=== PATIENT | male | born 1945 | race Caucasian/White ===

== ENCOUNTER 2017-10-28 16:07 | Outpatient (CLI) | payer MEDICARE | END 2017-10-28 16:08 | disposition critical access hospital (66) | LOC: EMS 16:07 | PROVIDERS: ATTEND Surgery | DX: S09.93XA Unspecified injury of face, initial encounter (principal); M79.622 Pain in left upper arm; W10.8XXA Fall (on) (from) other stairs and steps, initial encounter; Y92.59 Other trade areas as the place of occurrence of the external cause | CPT/HCPCS: A0425; A0427 ==

== ENCOUNTER 2017-10-28 16:28 | Emergency (ER) | payer MEDICARE ==
--- NOTE | 2017-10-28 17:30 | ED Physician Documentation ---
PD HPI Fall - Stated complaint Stated Complaint: FALL - Chief complaint Chief Complaint: Trauma Hd/Nk - History obtained from History obtained from: Patient, Family, EMS - History of Present Illness Mechanism of injury: Slipped, Lost balance Fall distance: Standing position (fell down 2 steps and struck face/left arm. Denies injury to chest and abd.) Timing - onset: Today Injury(ies) location: Face, Left Uppper Extremity. No: Head, Neck, Chest, Abdomen Quality of pain: Pain Associated symptoms: No: LOC, AMS, Nausea / vomiting Worsens with: Movement, Palpation Contributing factors: No: Anticoagulated, Intoxicated Similar symptoms before: Has not had sx before Recently seen: Not recently seen Review of Systems Constitutional: denies: Fever Nose: reports: Epistaxis (from the injury). denies: Rhinorrhea / runny nose, Congestion Throat: denies: Sore throat Cardiac: denies: Chest pain / pressure, Palpitations Respiratory: denies: Dyspnea, Cough GI: denies: Abdominal Pain, Nausea, Vomiting Skin: reports: Abrasion (s) (nose). denies: Laceration (s) Musculoskeletal: reports: Extremity pain (left shoulder). denies: Neck pain, Back pain Neurologic: denies: Focal weakness, Numbness, Confused, Altered mental status, Headache (just facial nose pain) PD PAST MEDICAL HISTORY - Past Medical History Cardiovascular: Hypertension Respiratory: None Neuro: None Endocrine/Autoimmune: Type 2 diabetes : Benign prostate hypertrophy - Present Medications Home Medications: Ambulatory Orders Medication Instructions Recorded Confirmed Carbamazepine [Carbamazepine ER] 10/28/17 Glipizide [Glipizide ER] 5 mg PO 10/28/17 HYDROcod/ACETAM 5/325 [[place] 5/325] 1 tab PO Q6H PRN #25 tablet 10/28/17 Lisinopril 40 mg PO 10/28/17 Tamsulosin [Flomax] 0.4 mg PO DAILY 10/28/17 10/28/17 metFORMIN [Glucophage] 500 mg PO ONCE 10/28/17 10/28/17 - Allergies Allergies/Adverse Reactions: Allergies Allergy/AdvReac Type Severity Reaction Status Date / Time No Known Drug Allergies Allergy Verified 10/28/17 16:48 - Living Situation Living Situation: reports: With spouse/s.o. Living Arrangement: reports: At home PD ED PE NORMAL - Vitals Vital signs reviewed: Yes - General General: Alert and oriented X 3, Well developed/nourished, Other (swelling and abrasion of nose. Dried blood in nostrils. No septal hematoma. ) - HEENT HEENT: PERRL, EOMI, Pharynx benign, Other (abrasion of gums from denture plate) - Neck Neck: Supple, no meningeal sign, No bony TTP, No adenopathy - Cardiac Cardiac: RRR, No murmur - Respiratory Respiratory: Clear bilaterally - Abdomen Abdomen: Soft, Non tender - Back Back: No CVA TTP, No spinal TTP - Derm Derm: Normal color, Warm and dry - Extremities Extremities: Normal ROM s pain, No calf tenderness / cord, Other (left proximal humerus with pain on any ROM. Good pulses and cap refill distally. 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 ) - Neuro Neuro: Alert and oriented X 3, investigator 2-12 intact, No motor deficit, No sensory deficit, Normal speech Eye Opening: Spontaneous Motor: Obeys Commands Verbal: Oriented GCS Score: 15 Results - Vitals Vitals: Vital Signs - 24 hr 10/28/17 10/28/17 16:42 20:25 Temperature 35.9 C L Heart Rate 97 90 Respiratory 15 16 Rate Blood Pressure 173/94 H 168/88 H O2 Saturation 95 96 Oxygen O2 Source Room air - Rads (name of study) facial head CT Radiology: Prelim report reviewed (nasal fracture) left humerus Radiology: Prelim report reviewed (impacted humeral neck fracture. ) PD MEDICAL DECISION MAKING - ED course Complexity details: reviewed results, considered differential, d/w patient - Sepsis Event Vital Signs: Vital Signs - 24 hr 10/28/17 10/28/17 16:42 20:25 Temperature 35.9 C L Heart Rate 97 90 Respiratory 15 16 Rate Blood Pressure 173/94 H 168/88 H O2 Saturation 95 96 Oxygen O2 Source Room air Departure - Departure Disposition: 01 Home, Self Care Clinical Impression: Fall from slip, trip, or stumble Qualifiers: Encounter type: initial encounter Qualified Code(s): W01.0XXA - Fall on same level from slipping, tripping and stumbling without subsequent striking against object, initial encounter Nasal bone fracture Qualifiers: Encounter type: initial encounter Fracture type: closed Qualified Code(s): S02.2XXA - Fracture of nasal bones, initial encounter for closed fracture Fracture of neck of humerus Qualifiers: Encounter type: initial encounter Fracture type: closed Laterality: left Qualified Code(s): S42.212A - Unspecified displaced fracture of surgical neck of left humerus, initial encounter for closed fracture Condition: Stable Record reviewed to determine appropriate education?: Yes Instructions: ED Fx Nasal Conf W X Ray, ED Fx Shoulder Follow-Up: Courtney Ellison PA [Primary Care Provider] - Joel Valdes MD [Provider Admit Priv/Credential] - Prescriptions: HYDROcod/ACETAM 5/325 [[place] 5/325] 1 tab PO Q6H PRN #25 tablet PRN Reason: Pain Comments: Shoulder immobilizer to reduce motion at the shoulder for 4-6 weeks. Follow-up with orthopedics in about a week to evaluate the healing. Call tomorrow for an appointment. Ibuprofen if needed for pains. Add Tylenol or hydrocodone if needed for worse pain. You did break your nose as well and we would see how it looks when the swelling goes down and how well you breathe through it. It is okay to use some saline nose spray or such to clean the nostrils. Gentle nose blowing is okay. Discharge Date/Time: 10/28/17 20:25
[2017-10-28] MEDS ORDERED: HYDROmorphone 1 MG/ML CARPUJECT IVP STA (17:47)
[2017-10-28] MEDS ORDERED: KETOROLAC 15 MG/ML VIAL IVP STA (17:48)
--- NOTE | 2017-10-28 19:07 | CT Report ---
Procedure Date: 10/28/2017 Accession Number: [id number] / [id number] Procedure: CT - Head W/O CPT Code: FULL RESULT: EXAM: CT HEAD WITHOUT CONTRAST. EXAM DATE: 10/28/2017 06:35 PM. CLINICAL HISTORY: Fell down 2 steps, struck face/head. COMPARISON: None. TECHNIQUE: Multiaxial CT images were obtained from the foramen magnum to the vertex. Reformats: Coronal. IV contrast: None. In accordance with CT protocol optimization, one or more of the following dose reduction techniques were utilized for this exam: automated exposure control, adjustment of mA and/or KV based on patient size, or use of iterative reconstructive technique. FINDINGS: Parenchyma: No intraparenchymal hemorrhage. No evidence of mass, midline shift, or CT findings of infarction. Moser-white differentiation is distinct. Moderate diffuse chronic microangiopathic white matter changes noted. Extraaxial Spaces: Normal for age. No subdural or epidural collections identified. Ventricles: Normal in size and position. Sinuses and Orbits: Moderate mucous retention cyst versus polyp in the left maxillary sinus. Opacification of multiple anterior ethmoid air cells, likely due to facial trauma. Rightward bowing of the mid nasal septum. Imaged orbits and mastoid air cells are unremarkable. Bones: Comminuted mildly displaced left nasal bone fracture with comminuted minimally displaced right nasal bone fracture. No additional facial fracture demonstrated. Calvarium is intact. No suspicious focal osseous lesion. Other: None. IMPRESSION: 1. No acute intracranial abnormality. Specifically, no intracranial hemorrhage. 2. Comminuted mildly displaced left and minimally displaced right nasal bone fractures. RADIA
--- NOTE | 2017-10-28 19:19 | XRAY Report ---
Procedure Date: 10/28/2017 Accession Number: [id number] / [id number] Procedure: XR - Humerus LT CPT Code: FULL RESULT: EXAM: LEFT HUMERUS RADIOGRAPHY EXAM DATE: 10/28/2017 06:48 PM. CLINICAL HISTORY: Fall down steps onto left arm. Pain. COMPARISON: None. TECHNIQUE: 2 views. FINDINGS: Bones: Impacted humeral neck fracture and mildly displaced greater tuberosity fracture. No other bony abnormalities. Joints: Normal. No effusions or subluxations in the visualized shoulder or elbow joints. Soft Tissues: Unremarkable. IMPRESSION: Impacted humeral neck fracture and mildly displaced greater tuberosity fracture. RADIA
[2017-10-28] MEDS ORDERED: MORPHINE 10 MG/ML VIAL IVP STA (19:45)
[2017-10-28] MEDS: HYDROcod/ACETAM 5/325 MG TABLET PO STA ×2 (19:54→19:58)
[2017-10-28] MEDS ORDERED: HYDROcod/ACET 5/325 Prepack 4 PO STA (20:01)
[2017-10-28 20:26] VITALS: BP 168/88
== END 2017-10-28 20:25 | disposition home or self-care (01) ==
LOC: EDUNIT# → ED 16:28
DX: S02.2XXA Fracture of nasal bones, initial encounter for closed fracture (principal); S42.212A Unspecified displaced fracture of surgical neck of left humerus, initial encounter for closed fracture; W10.9XXA Fall (on) (from) unspecified stairs and steps, initial encounter; E11.9 Type 2 diabetes mellitus without complications; I10 Essential (primary) hypertension; Z79.84 Long term (current) use of oral hypoglycemic drugs
CPT/HCPCS: 70450; 73060; 96374; 96375; 99283; 99284; A9270; J1170

== ENCOUNTER 2017-12-03 07:53 | Outpatient (CLI) | payer MEDICARE | END 2017-12-03 07:54 | disposition critical access hospital (66) | LOC: EMS 07:53 | PROVIDERS: ATTEND Surgery | DX: R41.82 Altered mental status, unspecified (principal); R73.09 Other abnormal glucose | CPT/HCPCS: A0425; A0427 ==

== ENCOUNTER 2017-12-03 08:03 | Emergency (ER) | payer MEDICARE ==
[2017-12-03] MEDS ORDERED: SODIUM CHLORIDE 0.9% 1,000 ML IV ONE (08:13)
--- NOTE | 2017-12-03 08:25 | ED Physician Documentation ---
History of Present Illness - Stated complaint Stated Complaint: ALOC - Chief complaint Chief Complaint: Neuro - Additonal information Additional information: hx from EMS and pt and EMR 72 male pmhx HTN T2DM and "GI issues" per EMS who got hx from he has had a poor appetite for a week and has not been eating, and confusion since yesterday found him down on the floor at top of stairs - per EMS appears to have taken one step down and fallen backward onto carepted landing per EMS per no fever cough NVD has had urinary sx Review of Systems Constitutional: denies: Fever Cardiac: denies: Chest pain / pressure Respiratory: denies: Dyspnea GI: reports: Bloody / black stool (black BM on leg). denies: Abdominal Pain, Nausea, Vomiting, Diarrhea : reports: Dysuria Musculoskeletal: denies: Neck pain Neurologic: reports: Confused, Altered mental status. denies: Headache Endocrine: denies: Easy bruising / bleeding Immunocompromised: denies: Immunocompromised PD PAST MEDICAL HISTORY - Past Medical History Cardiovascular: Hypertension Respiratory: None Neuro: None Endocrine/Autoimmune: Type 2 diabetes : Benign prostate hypertrophy Psych: Post traumatic stress disorder - Past Surgical History Past Surgical History: No - Present Medications Home Medications: Ambulatory Orders Medication Instructions Recorded Confirmed Carbamazepine [Carbamazepine ER] 10/28/17 Glipizide [Glipizide ER] 5 mg PO 10/28/17 HYDROcod/ACETAM 5/325 [[place] 5/325] 1 tab PO Q6H PRN #25 tablet 10/28/17 Lisinopril 40 mg PO 10/28/17 Tamsulosin [Flomax] 0.4 mg PO DAILY 10/28/17 10/28/17 metFORMIN [Glucophage] 500 mg PO ONCE 10/28/17 10/28/17 - Allergies Allergies/Adverse Reactions: Allergies Allergy/AdvReac Type Severity Reaction Status Date / Time No Known Drug Allergies Allergy Verified 10/28/17 16:48 - Social History Does the pt smoke?: No Smoking Status: Never smoker Does the pt drink ETOH?: Yes Does the pt have substance abuse?: No - Immunizations Immunizations are current?: No Immunizations: TDAP >10years/unknown PD ED PE NORMAL - Vitals Vital signs reviewed: Yes (tachy) - General General: No: Alert and oriented X 3 (confused slow to respond oriented X 2) - HEENT HEENT: PERRL. No: EOMI (dysconjugate gaze) - Neck Neck: No bony TTP (will image 2/2 fall and AMS) - Cardiac Cardiac: RRR (tachy) - Respiratory Respiratory: Clear bilaterally - Abdomen Abdomen: Soft, Other (large erythematous warm indurated swelling to L inguinal region with central necrosis) - Male Male : Other (tetes desc scrotal erythema s necrosis or crepitus) - Rectal Rectal: Other (black stool trace occult blood + QC passed) - Derm Derm: No: Normal color (see abd exam) - Neuro Neuro: Other (answers simple questions, moves all ext). No: Alert and oriented X 3 (X 2) Results - Vitals Vitals: Vital Signs - 24 hr 12/03/17 12/03/17 12/03/17 08:05 08:35 08:53 Temperature 36.0 C L 36 C L Heart Rate 114 H 117 H 124 H Respiratory 18 18 20 Rate Blood Pressure 124/72 130/77 130/70 O2 Saturation 95 99 97 12/03/17 12/03/17 12/03/17 09:30 10:41 11:15 Temperature Heart Rate 117 H 117 H 117 H Respiratory 16 16 18 Rate Blood Pressure 124/67 122/71 141/72 H O2 Saturation 100 100 98 12/03/17 12/03/17 12/03/17 11:30 11:45 12:08 Temperature Heart Rate 115 H 115 H 115 H Respiratory 18 17 18 Rate Blood Pressure 120/103 H 134/71 H 132/82 H O2 Saturation 99 99 98 12/03/17 12/03/17 12/03/17 12:30 14:01 14:54 Temperature 35.9 C L Heart Rate 113 H 110 H 110 H Respiratory 17 17 18 Rate Blood Pressure 126/64 110/65 149/66 H O2 Saturation 98 100 99 12/03/17 12/03/17 12/03/17 15:51 16:00 16:34 Temperature Heart Rate 109 H 110 H 109 H Respiratory 20 19 18 Rate Blood Pressure 115/71 108/60 113/65 O2 Saturation 100 98 100 Oxygen O2 Source Room air Oxygen Flow Rate 2 - EKG (time done) 0828 Rate: Rate (enter#) (113) Rhythm: Other (sinus vs regular ectopic tachycardia) Intervals: RBBB Ischemia: ST elevation c/w ischemia (inferior), Q waves (inferior) - Labs Labs: Laboratory Tests 12/03/17 12/03/17 12/03/17 08:19 08:19 08:19 WBC RBC Hgb Hct MCV MCH MCHC RDW Plt Count MPV Neut # (Auto) Lymph # (Auto) [place] # (Auto) Eos # (Auto) Baso # (Auto) Absolute Nucleated RBC Total Counted Band Neuts % (Manual) Reactive Lymphs % (Man) Abnorm Lymph % (Manual) Nucleated RBC % Neutrophils # (Manual) Lymphocytes # (Manual) Monocytes # (Manual) Eosinophils # (Manual) Basophils # (Manual) Differential Comment Manual Slide Review RBC Morph Micro Appear PT 13.4 H INR 1.2 APTT 20.5 L VBG pH VBG pCO2 VBG pO2 VBG HCO3 VBG Total CO2 VBG O2 Saturation VBG Base Excess Sodium 130 L Potassium 4.9 Chloride 92 L Carbon Dioxide 13 L Anion Gap 25.0 H BUN 39 H Creatinine 1.5 H Estimated GFR (MDRD) 46 L Glucose 695 H* Lactic Acid Calcium 9.3 Total Bilirubin 2.0 H AST 14 ALT 25 Alkaline Phosphatase 52 Total Creatine Kinase 39 Troponin I < 0.04 Total Protein 6.6 L Albumin 2.4 L Globulin 4.2 Albumin/Globulin Ratio 0.6 L Lipase 38 Urine Color Urine Clarity Urine pH Ur Specific [place] Urine Protein Urine Glucose (UA) Urine Ketones Urine Occult Blood Urine Nitrite Urine Bilirubin Urine Urobilinogen Ur Leukocyte Esterase Ur Microscopic Review Urine Culture Comments Blood Type Blood Type Recheck Antibody Screen 12/03/17 12/03/17 12/03/17 08:19 08:19 08:36 WBC RBC Hgb Hct MCV MCH MCHC RDW Plt Count MPV Neut # (Auto) Lymph # (Auto) [place] # (Auto) Eos # (Auto) Baso # (Auto) Absolute Nucleated RBC Total Counted Band Neuts % (Manual) Reactive Lymphs % (Man) Abnorm Lymph % (Manual) Nucleated RBC % Neutrophils # (Manual) Lymphocytes # (Manual) Monocytes # (Manual) Eosinophils # (Manual) Basophils # (Manual) Differential Comment Manual Slide Review RBC Morph Micro Appear PT INR APTT VBG pH 7.174 L VBG pCO2 35.5 L VBG pO2 30.6 VBG HCO3 12.8 L VBG Total CO2 13.9 L VBG O2 Saturation 50.1 L VBG Base Excess -14.7 L Sodium Potassium Chloride Carbon Dioxide Anion Gap BUN Creatinine Estimated GFR (MDRD) Glucose Lactic Acid Calcium Total Bilirubin AST ALT Alkaline Phosphatase Total Creatine Kinase Troponin I Total Protein Albumin Globulin Albumin/Globulin Ratio Lipase Urine Color YELLOW Urine Clarity CLEAR Urine pH 5.5 Ur Specific [place] 1.020 Urine Protein NEGATIVE Urine Glucose (UA) >=1000 H Urine Ketones 40 H Urine Occult Blood NEGATIVE Urine Nitrite NEGATIVE Urine Bilirubin NEGATIVE Urine Urobilinogen 0.2 (NORMAL) Ur Leukocyte Esterase NEGATIVE Ur Microscopic Review NOT INDICATED Urine Culture Comments NOT INDICATED Blood Type O NEGATIVE Blood Type Recheck Antibody Screen NEGATIVE 12/03/17 12/03/17 12/03/17 09:02 09:02 11:15 WBC 18.5 H RBC 4.36 L Hgb 12.7 L Hct 39.5 L MCV 90.5 MCH 29.1 MCHC 32.1 RDW 15.1 H Plt Count 336 MPV 8.2 Neut # (Auto) Not Reportable Lymph # (Auto) Not Reportable [place] # (Auto) Not Reportable Eos # (Auto) Not Reportable Baso # (Auto) Not Reportable Absolute Nucleated RBC Not Reportable Total Counted 100 Band Neuts % (Manual) 20 H Reactive Lymphs % (Man) 3 Abnorm Lymph % (Manual) 0 Nucleated RBC % Not Reportable Neutrophils # (Manual) 15.5 H Lymphocytes # (Manual) 1.7 Monocytes # (Manual) 1.1 H Eosinophils # (Manual) 0.0 Basophils # (Manual) 0.2 H Differential Comment MANUAL DIFFERENTIAL Manual Slide Review Indicated RBC Morph Micro Appear 2+ ANISOCYTOSIS PT INR APTT VBG pH VBG pCO2 VBG pO2 VBG HCO3 VBG Total CO2 VBG O2 Saturation VBG Base Excess Sodium Potassium Chloride Carbon Dioxide Anion Gap BUN Creatinine Estimated GFR (MDRD) Glucose Lactic Acid Calcium Total Bilirubin AST ALT Alkaline Phosphatase Total Creatine Kinase Troponin I < 0.04 Total Protein Albumin Globulin Albumin/Globulin Ratio Lipase Urine Color Urine Clarity Urine pH Ur Specific [place] Urine Protein Urine Glucose (UA) Urine Ketones Urine Occult Blood Urine Nitrite Urine Bilirubin Urine Urobilinogen Ur Leukocyte Esterase Ur Microscopic Review Urine Culture Comments Blood Type Blood Type Recheck O NEGATIVE Antibody Screen 12/03/17 12/03/17 12:56 16:05 WBC RBC Hgb Hct MCV MCH MCHC RDW Plt Count MPV Neut # (Auto) Lymph # (Auto) [place] # (Auto) Eos # (Auto) Baso # (Auto) Absolute Nucleated RBC Total Counted Band Neuts % (Manual) Reactive Lymphs % (Man) Abnorm Lymph % (Manual) Nucleated RBC % Neutrophils # (Manual) Lymphocytes # (Manual) Monocytes # (Manual) Eosinophils # (Manual) Basophils # (Manual) Differential Comment Manual Slide Review RBC Morph Micro Appear PT INR APTT VBG pH VBG pCO2 VBG pO2 VBG HCO3 VBG Total CO2 VBG O2 Saturation VBG Base Excess Sodium Potassium Chloride Carbon Dioxide Anion Gap BUN Creatinine Estimated GFR (MDRD) Glucose Lactic Acid 2.5 H 2.0 Calcium Total Bilirubin AST ALT Alkaline Phosphatase Total Creatine Kinase Troponin I Total Protein Albumin Globulin Albumin/Globulin Ratio Lipase Urine Color Urine Clarity Urine pH Ur Specific [place] Urine Protein Urine Glucose (UA) Urine Ketones Urine Occult Blood Urine Nitrite Urine Bilirubin Urine Urobilinogen Ur Leukocyte Esterase Ur Microscopic Review Urine Culture Comments Blood Type Blood Type Recheck Antibody Screen - Rads (name of study) CTH Radiology: See rad report (no acute) CTCS Radiology: See rad report (no fx sublux) CTAP non con Radiology: See rad report (abd mass vs abscess, L inguinal mass vs abscess, 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) CTAP with IV con Radiology: See rad report PD MEDICAL DECISION MAKING - ED course ED course: pt tachy altered and appears to have L inguinal infection - meets sepsis criteria lactate blood cx obtained 3 L IVF given NS as LR was not compatible with antibiotics started empiric ab pending work up results T2DM but FSBS "hi" and smells ketotic - DKA vs HHS possible GIB possible head neck injury with AMS EKG appears to show subacute inferior ischemia with inf Q waves and ST elev - no old EKG available even with calling PMD office - may need cardiac intervention but needs to be stabilized and have underlying infection/sepis, possible DKA or HHS addressed trop came back neg 1st CTAP non con 2/2 GFR - but per [facility] rad CT is non diag without IV con - so will redo with contrast and really must determine what this infection is in order to tx the underlying issue also asked for surgical consult Dr Giles at 10 AM - pt may not be a candidate for surgery at [facility] due to other medical issues going on but asking surgery input on what this inflamed necrotic mass is and what service to consult transfer to for definitive care - see her consult CT with IV con confirms 10 cm abd abscess adj small bowel as well and inguinal abscess rpt trop X 2 neg as well after 3 L NS and insulin 6 IV and inc drip for 6-100 finally have glucose down to a measurable level somehow original lactate did not get ordered but rpt at 3 hr is down to 2.5, 3 hr later down to 2 so in summary 72 male with 10 cm intrabdominal abscess likely small bowel related, also L inguinal abscess, scrotal cellulitis, sepsis, HHS vs DKA, ischemic EKG and renal insuff tx thus far is 30 cc /kg IVF, cefipime, vanco, flagyl, insulin bolus and gtt his mental status is improved, he is still tachy but now sounding wet so no further fluid bolus, not hypotensive, glucose down < 500, lactate down to [address] Giles states that pt is too sick and too complicated for surgery at [facility] and needs transfer pt will need transfer - I have stabilized pt to the best of ability given resources at [facility], he is improved and I feel safe for ALS transport per registration info pt insurance is [employer] (not [place] or [employer]) so 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 complete remained sick and slightly tachy but otherwise stable throughout remainder of ED visit - Sepsis Event Current Stage of Sepsis: Sepsis Possible source of Sepsis: GI tract/intra-abdominal, Skin/soft tissue Vital Signs: Vital Signs - 24 hr 12/03/17 12/03/17 12/03/17 08:05 08:35 08:53 Temperature 36.0 C L 36 C L Heart Rate 114 H 117 H 124 H Respiratory 18 18 20 Rate Blood Pressure 124/72 130/77 130/70 O2 Saturation 95 99 97 12/03/17 12/03/17 12/03/17 09:30 10:41 11:15 Temperature Heart Rate 117 H 117 H 117 H Respiratory 16 16 18 Rate Blood Pressure 124/67 122/71 141/72 H O2 Saturation 100 100 98 12/03/17 12/03/17 12/03/17 11:30 11:45 12:08 Temperature Heart Rate 115 H 115 H 115 H Respiratory 18 17 18 Rate Blood Pressure 120/103 H 134/71 H 132/82 H O2 Saturation 99 99 98 12/03/17 12/03/17 12/03/17 12:30 14:01 14:54 Temperature 35.9 C L Heart Rate 113 H 110 H 110 H Respiratory 17 17 18 Rate Blood Pressure 126/64 110/65 149/66 H O2 Saturation 98 100 99 12/03/17 12/03/17 12/03/17 15:51 16:00 16:34 Temperature Heart Rate 109 H 110 H 109 H Respiratory 20 19 18 Rate Blood Pressure 115/71 108/60 113/65 O2 Saturation 100 98 100 Oxygen O2 Source Room air Oxygen Flow Rate 2 Mental/Cognitive Status: Confused Capillary refill: Less than 2 seconds Departure - Departure Disposition: 02 Transfer Acute Care Hosp Clinical Impression: Sepsis, Intra-abdominal abscess, Inguinal abscess, DKA (diabetic ketoacidoses) , Abnormal EKG, Renal insufficiency Discharge Date/Time: 12/03/17 16:30
[2017-12-03] MEDS ORDERED: metroNIDAZOLE 500 MG/100 ML 500 MG/100 ML BAG IV STA (08:28)
[2017-12-03] MEDS ORDERED: CEFEPIME 2 GM in SODIUM CHLORIDE 0.9% MINIBAG 100 ML IV STA (08:28)
[2017-12-03] MEDS ORDERED: SODIUM CHLORIDE 0.9% 2,000 ML IV ONE ×2 (08:28→10:03)
[2017-12-03] MEDS ORDERED: VANCOMYCIN INJ 1 GM in SODIUM CHLORIDE 0.9% 500 ML IV STA (08:29)
[2017-12-03 08:31] LABS: VBG BASE EXCESS -14.7 mmol/L (-2 - +2); VBG PCO2 35.5 mmHg (41-51); VBG PH 7.174 (7.31-7.41); VBG PO2 30.6 mmHg (25-47); VBG TOTAL CO2 13.9 mmol/L (24-29)
[2017-12-03] MEDS ORDERED: LACTATED RINGERS 2,000 ML IV STA (08:31)
[2017-12-03] MEDS ORDERED: LACTATED RINGERS 1,000 ML IV STA ×2 (08:32→08:33)
[2017-12-03] MEDS ORDERED: VANCOMYCIN INJ 2 GM in SODIUM CHLORIDE 0.9% 500 ML IV STA (08:33)
[2017-12-03 08:49] LABS: GLUCOSE, URINE (UA) >=1000 mg/dL (NEGATIVE); KETONES,URINE (UA) 40 mg/dL (NEGATIVE); LEUKOCYTE ESTERASE, URINE NEGATIVE (NEGATIVE); NITRITE,URINE NEGATIVE (NEGATIVE); OCCULT BLOOD,URINE NEGATIVE (NEGATIVE); PH,URINE 5.5 PH (5.0-7.5); PROTEIN,URINE NEGATIVE (NEGATIVE); UROBILINOGEN,URINE 0.2 (NORMAL) E.U./dL (NORMAL)
[2017-12-03 08:50] LABS: INR 1.2 (0.8-1.2); PT - PROTHROMBIN TIME 13.4 secs (9.9-12.6)
[2017-12-03 08:54] LABS: ALBUMIN 2.4 g/dL (3.2-5.5); ALBUMIN/GLOBULIN RATIO 0.6 (1.0-2.2); CALCIUM 9.3 mg/dL (8.5-10.3); CREATININE 1.5 mg/dL (0.6-1.2); TOTAL PROTEIN 6.6 g/dL (6.7-8.2)
[2017-12-03 08:55] LABS: BILIRUBIN,URINE NEGATIVE (NEGATIVE); CLARITY,URINE CLEAR (CLEAR); ICTOTEST,URINE NEGATIVE
[2017-12-03] MEDS ORDERED: IOPAMIDOL-300 100 ML VIAL ONE (08:55)
[2017-12-03] MEDS ORDERED: INSULIN REGULAR HUMAN 100 UNIT in SODIUM CHLORIDE 0.9% 100ML 99 ML IV STA (08:59)
[2017-12-03] MEDS ORDERED: INSULIN REGULAR HUMAN 100 UNIT/1 ML 10 ML MDV IVP STA (08:59)
[2017-12-03 09:11] LABS: BASOPHILS % (AUTO) 0.2 %; EOSINOPHILS % (AUTO) 0.1 %; HGB - HEMOGLOBIN 12.7 g/dL (14.0-18.0); LYMPHOCYTES % (AUTO) 4.7 %; MEAN CORPUSCULAR HEMOGLOBIN 29.1 pg (27.0-31.0); MEAN CORPUSCULAR HGB CONC 32.1 g/dL (32.0-36.0); MEAN CORPUSCULAR VOLUME 90.5 fL (80.0-94.0); MEAN PLATELET VOLUME 8.2 fL (7.4-11.4); MONOCYTES % (AUTO) 9.4 %; NEUTROPHILS % (AUTO) 85.6 %; PLT - PLATELET COUNT 336 10^3/uL (130-450); RED BLOOD COUNT 4.36 10^6/uL (4.70-6.10); RED CELL DISTRIBUTION WIDTH 15.1 % (12.0-15.0); WHITE BLOOD COUNT 18.5 x10^3/uL (4.8-10.8)
[2017-12-03 09:25] LABS: RBC MORPHOLOGY (MULTIPLE) 2+ ANISOCYTOSIS (NORMAL)
[2017-12-03 09:26] LABS: ABNORMAL LYMPHS % (MANUAL) 0 %
[2017-12-03 09:28] LABS: BAND NEUTROPHILS % (MANUAL) 20 %; BASOPHILS # (MANUAL) 0.2 10^3/uL (0-0.1); BASOPHILS % (MANUAL) 1 %; LYMPHOCYTES # (MANUAL) 1.7 10^3/uL (1.5-3.5); LYMPHOCYTES % (MANUAL) 6 %; MONOCYTES # (MANUAL) 1.1 10^3/uL (0.0-1.0); NEUTROPHILS # (MANUAL) 15.5 10^3/uL (1.5-6.6); NEUTROPHILS % (MANUAL) 64 %
[2017-12-03 09:29] LABS: DIFFERENTIAL COMMENT MANUAL DIFFERENTIAL
--- NOTE | 2017-12-03 09:47 | CT Report ---
Reason: found down ams Procedure Date: 12/03/2017 Accession Number: [id number] / [id number] Procedure: CT - Head W/O CPT Code: FULL RESULT: EXAM: CT HEAD EXAM DATE: 12/03/2017 09:25 AM. CLINICAL HISTORY: Found down, altered mental status. COMPARISON: Head without contrast 10/28/2017. TECHNIQUE: Multiaxial CT images were obtained from the foramen magnum to the vertex. Reformats: Sagittal and coronal. IV contrast: None. In accordance with CT protocol optimization, one or more of the following dose reduction techniques were utilized for this exam: automated exposure control, adjustment of mA and/or KV based on patient size, or use of iterative reconstructive technique. FINDINGS: Parenchyma: No intraparenchymal hemorrhage. No evidence of mass, midline shift, or CT findings of infarction. Moser-white differentiation is distinct. Extraaxial Spaces: Normal for age. No subdural or epidural collections identified. Ventricles: Normal in size and position. Sinuses and Orbits: Imaged paranasal sinuses, orbits, and mastoids show no significant abnormality. Bones: No evidence of fracture or calvarial defect. Other: Mild superficial extracranial soft tissue swelling at the vertex. IMPRESSION: No acute intracranial abnormality. Extracranial superficial soft tissue swelling. RADIA
--- NOTE | 2017-12-03 10:16 | CT Report ---
Reason: LLQ swelling induration erythema necrosis Procedure Date: 12/03/2017 Accession Number: [id number] / [id number] Procedure: CT - Abdomen/Pelvis W/O CPT Code: FULL RESULT: EXAM: CT ABDOMEN AND PELVIS EXAM DATE: 12/03/2017 09:25 AM. CLINICAL HISTORY: Left lower quadrant swelling induration erythema necrosis. COMPARISONS: None. TECHNIQUE: Routine helical CT imaging was performed through the abdomen and pelvis. IV contrast: . Enteric contrast: No. Reconstructions: Coronal and sagittal. In accordance with CT protocol optimization, one or more of the following dose reduction techniques were utilized for this exam: automated exposure control, adjustment of mA and/or KV based on patient size, or use of iterative reconstructive technique. FINDINGS: There is a 11 cm x 7.5 cm well demarcated mass versus collection with some surrounding fat stranding in the left mid abdomen adjacent to a region of colonic diverticulosis. Within the left inguinal canal for a length of 10 cm and a width of 4 cm is a soft tissue mass with surrounding fat stranding which correlates to the area of skin induration with central necrosis on physical examination. The visualized noncontrast liver, spleen, adrenal glands, kidneys and pancreas are unremarkable. Gallbladder contains calculi. Pelvis is notable for an indwelling Rosas catheter. There are heavy calcifications of the aorta with infrarenal ectasia to 2.9 cm and ectasia of the right common iliac artery 2.0 cm. There is no bowel obstruction Intestinal gas or significant free fluid. There is no overt intraperitoneal lymphadenopathy. IMPRESSION: Abdominal mass versus abscess. Left inguinal mass versus phlegmon with surrounding inflammatory changes. 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 [facility]
--- NOTE | 2017-12-03 10:18 | CT Report ---
Reason: found down ams Procedure Date: 12/03/2017 Accession Number: [id number] / [id number] Procedure: CT - Cervical Spine W/O CPT Code: FULL RESULT: EXAM: CT CERVICAL SPINE WITHOUT CONTRAST DATE: 12/03/2017 09:25 AM. HISTORY: Found down. Altered mental status. COMPARISONS: HEAD W/O 10/28/2017. TECHNIQUE: Thin-section axial images were acquired of the cervical spine without contrast. Post-processing: Coronal and sagittal reformats. Other: None. In accordance with CT protocol optimization, one or more of the following dose reduction techniques were utilized for this exam: automated exposure control, adjustment of mA and/or KV based on patient size, or use of iterative reconstructive technique. FINDINGS: Alignment: No scoliosis or spondylolisthesis. Bones: No fracture or bone lesion. The atlantooccipital relationship is preserved. There is straightening of the normal cervical curvature. Alignment is otherwise preserved. There are multilevel degenerative changes which are most pronounced at C5 through C7 including loss of disk space height and osteophyte formation. Musculature: Normal. No fatty atrophy. Other: The paravertebral and prevertebral soft tissues are unremarkable. The lung apices demonstrate significant emphysematous and bullous disease. IMPRESSION: Atraumatic cervical spine. Degenerative changes. Emphysematous lung disease with apical bullae. [facility]
[2017-12-03] MEDS ORDERED: LORazepam 2 MG/ML VIAL IVP STA (11:44)
--- NOTE | 2017-12-03 11:44 | CT Report ---
Reason: MASS VS ABSCESS, low GFR but non con non diag Procedure Date: 12/03/2017 Accession Number: [id number] / [id number] Procedure: CT - Abdomen/Pelvis W/ CPT Code: FULL RESULT: EXAM: CT ABDOMEN AND PELVIS EXAM DATE: 12/03/2017 10:59 AM. CLINICAL HISTORY: Mass versus abscess, low GFR but non con non diagnosis. COMPARISONS: ABDOMEN/PELVIS W/O 12/03/2017 9:17 AM. TECHNIQUE: Routine helical CT imaging was performed through the abdomen and pelvis. IV contrast: Isovue-300, 100 mL. Enteric contrast: No. Reconstructions: Coronal and sagittal. In accordance with CT protocol optimization, one or more of the following dose reduction techniques were utilized for this exam: automated exposure control, adjustment of mA and/or KV based on patient size, or use of iterative reconstructive technique. FINDINGS: 10 cm collection intimately associated with small bowel wall is confirmed as an abscess, contains gas. Previously identified left inguinal mass contains fluid and is heterogeneous, favor abscess. Gallbladder demonstrates cholelithiasis. Mild thickening of the left adrenal gland, nonspecific, often seen with adrenal adenoma which is benign. The liver, spleen, right adrenal gland, kidneys and pancreas are unremarkable. No bowel obstruction. No free air or significant free fluid. No lymphadenopathy. Rosas catheter indwelling in the bladder. IMPRESSION: Abdominal abscess. Left inguinal canal abscess/phlegmon. [facility]
[2017-12-03] MEDS ORDERED: IOPAMIDOL-300 100 ML VIAL IVP ONE (15:21)
[2017-12-03 16:35] VITALS: BP 113/65
== END 2017-12-03 16:30 | disposition short-term general hospital (02) ==
LOC: EDUNIT# → ED 08:03
DX: A41.9 Sepsis, unspecified organism (principal); K65.1 Peritoneal abscess; L02.214 Cutaneous abscess of groin; I45.10 Unspecified right bundle-branch block; E11.10 Type 2 diabetes mellitus with ketoacidosis without coma; R94.31 Abnormal electrocardiogram [ECG] [EKG]; N28.9 Disorder of kidney and ureter, unspecified; I10 Essential (primary) hypertension; Z79.84 Long term (current) use of oral hypoglycemic drugs
CPT/HCPCS: 36415; 70450; 72125; 74176; 74177; 80053; 81003; 82550; 82803; 83605; 83690; 84484; 85025; 85610; 85730; 86850; 86900; 86901; 87040; 93005; 96365; 96367; 96375; 99285; J1815; J3370; J7120; Q9967; 81001; 87086